=== PATIENT | male | born 1935 | race Caucasian/White ===

== ENCOUNTER 2019-01-10 20:44 | Inpatient (IN) ==
[2019-01-10] MEDS ORDERED: ACETAMINOPHEN 325 MG TABLET PO PRN (23:29)
[2019-01-10] MEDS ORDERED: SODIUM CHLORIDE 0.9% 1,000 ML IV SCH (23:30)
[2019-01-10] MEDS: SODIUM CHLORIDE 0.9% 1,000 ML IV SCH (23:45)
[2019-01-10] MEDS ORDERED: ONDANSETRON 4 MG/2 ML VIAL IV PRN (23:45)
[2019-01-10] MEDS ORDERED: LOPERAMIDE 2 MG CAPSULE PO PRN (23:45)
[2019-01-11 05:30] LABS: Basophils % 0.2 % (0.0-0.8); Eosinophils % 0.4 % (0.00-10.9); Hematocrit 37.9 VOL% (42.0-52.0); Hemoglobin 12.7 GM/DL (14.0-18.0); Immature Granulocytes % 0.7 %; Immature Granulocytes Absolute 0.04 #; Lymphocytes # 1.1 10*3/uL (1.4-4.0); Lymphocytes % 19.4 % (21.2-54.2); Mean Corpuscular HGB Conc 33.5 GM/DL (32-36); Mean Corpuscular Hemoglobin 29 PG (27-34); Mean Corpuscular Volume 86.7 FL (87-102); Mean Platelet Volume 10.3 FL (9.6-12.0); Monocytes # 1.1 10*3/uL (0.11-0.8); Monocytes % 20.1 % (1.7-12.7); Neutrophils # 3.3 10*3/uL (1.4-7.4); Neutrophils % 59.2 % (38.7-73.9); Platelet Count 158 T/CUMM (130-400); Red Blood Count 4.37 MC/CUMM (3.8-5.5); White Blood Count 5.6 T/CUMM (4-12)
[2019-01-11 06:11] LABS: Calcium 7.2 MG/DL (8.5-10.1); Osmolality,Calculated 284.4 MOS/KG (273-304); Potassium 3.5 MMOL/L (3.5-5.1); Thyroid Stimulating Hormone 3.3 uIU/ml (0.358-3.74)
[2019-01-11 06:18] LABS: Band Neutrophils 12 % (0-10); Eosinophils 1 % (0-10); Hypochromasia Slight; Lymphocytes 17 % (20-55); Ovalocytes Slight; Platelet Estimate Adequate; Segmented Neutrophils 50 % (50-85); Total Cells Counted 100
[2019-01-11] MEDS: SODIUM CHLORIDE 0.9% 1,000 ML IV SCH ×3 (06:54→17:43)
[2019-01-11] MEDS: LEVOTHYROXINE 25 MCG TABLET PO SCH (06:58)
[2019-01-11] MEDS: PANTOPRAZOLE 40 MG TABLET PO SCH (08:45)
[2019-01-11] MEDS: ATORVASTATIN 20 MG TABLET PO SCH (08:45)
[2019-01-11] MEDS: ASPIRIN EC 81 MG TABLET PO SCH (08:45)
[2019-01-11] MEDS: ENOXAPARIN 40 MG/0.4 ML SYRINGE SUBCUT SCH (08:45)
[2019-01-11] MEDS: VANCOMYCIN 50 MG/ML 60 ML/BOTTLE PO SCH (17:44)
[2019-01-12] MEDS: VANCOMYCIN 50 MG/ML 60 ML/BOTTLE PO SCH ×4 (00:16→17:42)
[2019-01-12] MEDS: SODIUM CHLORIDE 0.9% 1,000 ML IV SCH ×3 (02:20→18:11)
[2019-01-12 04:51] LABS: Basophils % 0.5 % (0.0-0.8); Eosinophils # 0.1 10*3/uL (0.0-0.87); Eosinophils % 1.5 % (0.00-10.9); Hematocrit 37.6 VOL% (42.0-52.0); Hemoglobin 12.4 GM/DL (14.0-18.0); Immature Granulocytes Absolute 0.06 #; Lymphocytes # 1.4 10*3/uL (1.4-4.0); Lymphocytes % 24.6 % (21.2-54.2); Mean Corpuscular Hemoglobin 29 PG (27-34); Mean Corpuscular Volume 86.4 FL (87-102); Mean Platelet Volume 10.4 FL (9.6-12.0); Monocytes # 0.7 10*3/uL (0.11-0.8); Monocytes % 11.5 % (1.7-12.7); Neutrophils # 3.6 10*3/uL (1.4-7.4); Neutrophils % 60.9 % (38.7-73.9); Platelet Count 156 T/CUMM (130-400); Red Blood Count 4.35 MC/CUMM (3.8-5.5); Red Cell Distribution Width 13.1 % (9.3-17.3); White Blood Count 5.9 T/CUMM (4-12)
[2019-01-12 05:16] LABS: Band Neutrophils 11 % (0-10); Hypochromasia 1+; Lymphocytes 23 % (20-55); Platelet Estimate Adequate; Segmented Neutrophils 58 % (50-85); Total Cells Counted 100
[2019-01-12 05:24] LABS: Calcium 6.9 MG/DL (8.5-10.1); Osmolality,Calculated 281.4 MOS/KG (273-304); Osmolality,Calculated 283.3 MOS/KG (273-304); Potassium 3.6 MMOL/L (3.5-5.1); Potassium 3.7 MMOL/L (3.5-5.1)
[2019-01-12] MEDS: LEVOTHYROXINE 25 MCG TABLET PO SCH (06:55)
[2019-01-12] MEDS: PANTOPRAZOLE 40 MG TABLET PO SCH (08:40)
[2019-01-12] MEDS: ASPIRIN EC 81 MG TABLET PO SCH (08:40)
[2019-01-12] MEDS: ATORVASTATIN 20 MG TABLET PO SCH (08:40)
[2019-01-12] MEDS: ENOXAPARIN 40 MG/0.4 ML SYRINGE SUBCUT SCH (08:40)
[2019-01-13] MEDS: VANCOMYCIN 50 MG/ML 60 ML/BOTTLE PO SCH ×3 (00:40→11:55)
[2019-01-13] MEDS: SODIUM CHLORIDE 0.9% 1,000 ML IV SCH (03:14)
[2019-01-13 05:14] LABS: Calcium 6.8 MG/DL (8.5-10.1); Osmolality,Calculated 274.5 MOS/KG (273-304); Potassium 3.4 MMOL/L (3.5-5.1)
[2019-01-13] MEDS: LEVOTHYROXINE 25 MCG TABLET PO SCH (05:32)
[2019-01-13 09:05] LABS: Alanine Aminotransferase 24 U/L (16-61); Albumin 2.1 G/DL (3.4-5.0); Alkaline Phosphatase 35 U/L (45-117); Aspartate Amino Transferase 21 U/L (0-37); Bilirubin,Direct < 0.100 MG/DL (0.0-0.20); Bilirubin,Indirect 0.3 MG/DL (0.0-1.0); Total Protein 4.7 G/DL (6.4-8.3)
[2019-01-13] MEDS: ASPIRIN EC 81 MG TABLET PO SCH (09:19)
[2019-01-13] MEDS: PANTOPRAZOLE 40 MG TABLET PO SCH (09:20)
[2019-01-13] MEDS: ATORVASTATIN 20 MG TABLET PO SCH (09:20)
[2019-01-13] MEDS: ENOXAPARIN 40 MG/0.4 ML SYRINGE SUBCUT SCH (09:20)
[2019-01-13 12:12] VITALS: BP 132/75
== END 2019-01-13 12:55 | disposition home or self-care (01) | DRG 372 ==
LOC: N.TELES → SUATTDRO 22:00 → N.3E 01-11 17:08
PROVIDERS: ADMIT Internal Medicine; ATTEND Internal Medicine